=== PATIENT | male | born 1980 | race Caucasian/White ===

== ENCOUNTER 2024-06-08 08:49 | Day surgery (SDC) | payer MEDICAID ==
[2024-06-05 11:25] LABS: BASOPHILS % (AUTO) 0.4 % (0-1); EOSINOPHILS # (AUTO) 0.5 X10'3 (0-0.9); EOSINOPHILS % (AUTO) 4.6 % (0-6); LYMPHOCYTES # (AUTO) 1.3 X10'3 (1.1-4.8); MEAN CORPUSCULAR HEMOGLOBIN 33.3 PG (27.0-31.0); MEAN CORPUSCULAR HGB CONC 33.6 g/dL (33.0-36.5); MEAN PLATELET VOLUME 7.2 FL (7.4-10.4); MONOCYTES # (AUTO) 0.7 X10'3 (0-0.9); MONOCYTES % (AUTO) 7.2 % (2-12); NEUTROPHILS # (AUTO) 7.3 X10'3 (1.8-7.7); NEUTROPHILS % (AUTO) 74.8 % (42-75); PRE OP HEMATOCRIT 44.1 % (42.0-52.0); PRE OP HEMOGLOBIN 14.8 g/dL (14.0-17.9); PRE OP PLATELET COUNT 320 X10'3 (140-440); PRE OP WHITE BLOOD COUNT 9.8 10'3 (4.8-10.8); RED BLOOD COUNT 4.45 X10'6 (4.70-6.10); RED CELL DISTRIBUTION WIDTH 13.5 % (11.5-14.5)
[2024-06-05 13:49] LABS: ALBUMIN 3.6 G/DL (3.4-5.0); ALBUMIN/GLOBULIN RATIO 1.2 (1.1-1.5); ALKALINE PHOSPHATASE 95 IU/L (46-116); BLOOD UREA NITROGEN 14 MG/DL (7-18); BUN/CREATININE RATIO 13.3 (10.0-20.0); CALCIUM 8.4 MG/DL (8.5-10.1); CHLORIDE 105 MMOL/L (99-107); CREATININE 1.05 MG/DL (0.60-1.10); PRE OP ALT 53 U/L (30-65); PRE OP ANION GAP 9 (8-16); PRE OP AST 18 U/L (10-37); PRE OP BILIRUB, TOTAL 0.3 MG/DL (0.0-1.0); PRE OP GLUCOSE 79 MG/DL (70-104); PRE OP SODIUM 142 MMOL/L (135-145); TOTAL CARBON DIOXIDE 28.4 MMOL/L (24-32); TOTAL PROTEIN 6.7 G/DL (6.4-8.2); eGFR 77 ML/MIN
[2024-06-08] VITALS (7 sets, daily range): BP systolic 108–125; BP diastolic 68–77; PULSE 61–77; RESP 11–16; TEMP 98.6; O2SAT 96–100
[~2024-06-08] VITALS: Ht 172.7 cm; Wt 72.2 kg
[~2024-06-08 08:49] MED LIST: BUPIVAcaine/PF 2.5mg/ml (0.25%) 10ml vial ONE; LIDOcaine 2% (20mg/ml) 5ml vial ONE; NO HOME MEDS; clindamycin 600mg/D5W 50ml 50 ML IV ONE; famotidine 20mg tablet PO ONE; ringers solution, lacted 1,000 ML IV SCH
[2024-06-08] MEDS ORDERED: fentaNYL/PF 50MCG/1 ML 2ML syringe ONE (09:32)
[2024-06-08] MEDS ORDERED: midazolam 1 mg/ML 2ml injection ONE (09:33)
[2024-06-08] MEDS ORDERED: LIDOcaine 0.5% (5mg/ml) 50ml vial ONE (09:53)
[2024-06-08] MEDS ORDERED: propofol inj 20 ML IV ONE (09:53)
[2024-06-08] MEDS ORDERED: ondansetron/PF 4mg/2ml inj IV PRN (10:00)
[2024-06-08] MEDS ORDERED: morphine 2 MG/ML inj. syringe IV PRN (10:00)
[2024-06-08] MEDS: BUPIVAcaine/PF 2.5mg/ml (0.25%) 10ml vial IJ ONE (10:00)
[2024-06-08] MEDS ORDERED: ringers solution, lacted 1,000 ML IV SCH (10:00)
[2024-06-08] MEDS ORDERED: meperidine/PF 25mg/ml syringe IV PRN ×3 (10:00)
[2024-06-08] MEDS ORDERED: morphine 4 MG/ML inj SYRINge IV PRN (10:00)
[2024-06-08] MEDS ORDERED: proCHLORperazine 10 MG/2 ml inj IV PRN (10:00)
== END 2024-06-08 11:11 | disposition home or self-care (01) ==
LOC: PAS 08:49
PROVIDERS: ATTEND Orthopaedic Surgery Hand Surgery
DX: M72.0 Palmar fascial fibromatosis [Dupuytren] (principal); R22.32 Localized swelling, mass and lump, left upper limb; Z88.8 Allergy status to other drugs, medicaments and biological substances; L91.8 Other hypertrophic disorders of the skin; F17.210 Nicotine dependence, cigarettes, uncomplicated; Z72.89 Other problems related to lifestyle; Z79.899 Other long term (current) drug therapy; M79.645 Pain in left finger(s)
CPT/HCPCS: 11422; 26123; 36415; 80053; 82948; 85025; 93005; J2003; J2250; J2704; J3010; J3490; J7030; J7120; Z7506; Z7512; A4215; A4618; A6449; A7000